=== PATIENT | female | born 1955 ===

== ENCOUNTER 2024-08-09 18:15 | Emergency (ER) | payer MEDICARE, SELFPAY ==
[2024-08-09] VITALS (11 sets, daily range): BP systolic 104–202; BP diastolic 62–88; PULSE 74–85; RESP 15–21; TEMP 36.6–37.1; O2SAT 92–99
--- NOTE | ~2024-08-09 | XR_ITS ---
XR elbow LT 2V Ordering provider: Brandon Huitron MD History: . Post reduction . Comparison: None. FINDINGS: BONES: Status post reduction of the dislocated radius and ulna. No definite fractures seen. JOINT SPACES: Normal. SOFT TISSUES: Soft tissue swelling is seen medially and laterally. Elevation of the anterior and post erior fat pad is seen. IMPRESSION: Status post reduction with no definite fractures seen. Reviewed, dictated and finalized at location A.
--- NOTE | ~2024-08-09 | XR_ITS ---
XR elbow LT min 3V Ordering provider: Brandon Huitron MD History: . arm pain, deformity . Comparison: None. FINDINGS: BONES: Posterior dislocation of the radius and ulna compared to the humerus is noted. Slight dislocat ion laterally is also seen. Small chip of bone is seen laterally most likely from the lateral femoral condyle. SOFT TISSUES: Soft tissue swelling seen in the area of the elbow. No definite joint effusion. IMPRESSION: Posterior Dislocation in the area of the left elbow with the radius and ulna seen posterior to the hu merus. Reviewed, dictated and finalized at location A. IMPRESSION: Posterior Dislocation in the area of the left elbow with the radius and ulna se en posterior to the humerus.
[2024-08-09] MEDS: MORPHINE SULFATE (*CRX) 2 MG/ML INJ IV PUSH (18:30)
--- NOTE | 2024-08-09 18:34 | ED.GENADULT ---
HPI - General Adult General Chief complaint: Extremity Injury, Upper Stated complaint: extremity injury Time Seen by Provider: 08/09/24 18:18 History of Present Illness HPI narrative: 68-year-old female presents emergency department for evaluation for left elbow pain. Patient reports he was attempting to ambulate with a walker and fell injuring her left elbow. Patient arrived by EMS. Patient denies any pain or injury. Related Data Allergies Allergy/AdvReac Type Severity Reaction Status Date / Time amoxicillin Allergy Unknown Verified 08/09/24 18:26 Penicillins Allergy Unknown Verified 08/09/24 18:26 Tetracyclines Allergy Unknown Verified 08/09/24 18:26 Review of Systems Review of Systems: All systems reviewed & are unremarkable except as noted in HPI and below Exam Narrative: APPEARANCE: Well appearing, no pain, no distress, well-nourished. HEAD: normocephalic, atraumatic. EYES: PERRLA/EOMI, conjunctivae clear. NOSE: Normal no drainage EARS:TMS clear with good light reflex. THROAT: Pharynx clear, no exudate. NECK: Supple. No adenopathy, no masses. RESPIRATORY: Airway patent, respirations nonlabored. Clear to auscultation bilaterally, no rales, rhonchi, wheezing. CARDIOVASCULAR: Regular rate and rhythm without murmurs rubs or gallops. ABDOMINAL: Soft, nontender, nondistended, normal bowel sounds MUSCULOSKELETAL: Left elbow dislocation, neurovascular intact NEURO: Alert. Cranial nerves II through XII intact. Good gait. Good coordination SKIN: Warm, dry. Normal Color Course Vital Signs Vital signs: Vital Signs Temperature 98.2 F 08/09/24 18:22 Pulse Rate 76 08/09/24 18:22 Respiratory Rate 16 08/09/24 18:22 Blood Pressure 190/75 H 08/09/24 18:22 Pulse Oximetry 99 08/09/24 18:22 Temperature 97.9 F 08/09/24 20:31 Pulse Rate 79 08/09/24 20:31 Respiratory Rate 17 08/09/24 20:31 Blood Pressure 194/77 H 08/09/24 20:31 Pulse Oximetry 92 08/09/24 21:31 Oxygen Delivery Nasal Cannula 08/09/24 21:31 Oxygen Flow Rate 2 08/09/24 21:31 Procedures Orthopedic Joint Reduction Joint #1: Orthopedic Joint Reduction Time: 20:43 Time Out Performed: Yes Side: left Joint Reduction Location: elbow Analgesia: procedural sedation Pre-Procedure Neuro Vascular Exam: normal Shoulder Technique Used (if applicable): traction/counter-traction Technique used: traction/counter-traction Post-reduction neuro exam: intact Post-reduction vascular: intact Post Reduction X-Ray Obtained: Yes Post Reduction X-Ray Results: reduced Splint Applied: Yes Patient Tolerated Procedure: well and no complications Procedural Sedation Procedural Sedation #1: Procedural Sedation Time: 20:44 Presedation Evaluation: APPEARANCE: Well appearing, no pain, no distress, well-nourished. HEAD: normocephalic, atraumatic. EYES: PERRLA/EOMI, conjunctivae clear. NOSE: Normal no drainage EARS:TMS clear with good light reflex. THROAT: Pharynx clear, no exudate. NECK: Supple. No adenopathy, no masses. RESPIRATORY: Airway patent, respirations nonlabored. Clear to auscultation bilaterally, no rales, rhonchi, wheezing. CARDIOVASCULAR: Regular rate and rhythm without murmurs rubs or gallops. ABDOMINAL: Soft, nontender, nondistended, normal bowel sounds MUSCULOSKELETAL: Dislocation of left elbow NEURO: Alert. Cranial nerves II through XII intact. Good gait. Good coordination SKIN: Warm, dry. Normal Color Provider Performed: sedation and procedure Informed Consent Obtained: yes Equipment in Room: bag and mask, capnography, teletypesetter monitor, crash cart, oxygen, pulse oximeter and suction Plan for Sedation: moderate sedation ASA Class: II Mallampati Classification: class I NPO Status: last solid food (hours ago) Explanation to Patient/Family: Risk/Benefits/Alternatives Pt. Educated on Pr
--- NOTE | 2024-08-09 19:41 | PC.NURSE ---
purewick in place
--- NOTE | 2024-08-09 21:02 | PC.NURSE ---
Addendum entered by Soledad Lovell RN 08/09/24 21:09: 60 MG propofol administered at [address] 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
== END 2024-08-09 21:56 | disposition home or self-care (01) ==
PROVIDERS: Emergency Provider Emergency Medicine
DX: S53.125A Posterior dislocation of left ulnohumeral joint, initial encounter (principal); W18.39XA Other fall on same level, initial encounter
CPT/HCPCS: 24600; 73070; 73080; 96374; 99285; J2270